=== PATIENT | female | born 1965 | race Caucasian/White ===

== ENCOUNTER 2024-06-22 18:04 | Emergency (ER) | payer MEDICAID, SELFPAY ==
[2024-06-22 18:20] VITALS: BP 127/73; PULSE 88; RESP 17; TEMP 36.8; O2SAT 93
[2024-06-22 18:21] VITALS: BMI 16.4
--- NOTE | 2024-06-22 19:23 | PC.NURSE ---
PT ASKED TO LEAVE AMA, PT STATES SHE DOES NOT WANT TO WAIT FOR ANY FURTHER TESTING. MD RAY AWARE. IV REMOVED. ALL RISKS AND BENEFITS UP TO AND INCLUDED EXPLAINED. PT LEFT AMBULATED WITH A STEADY GAIT, BUT GIVEN A WHEELCHAIR AND HELPED OUT TO THE LOBBY VIA WHEELCHAIR. PT A/OX3 GCS 15. PT ENCOURAGED TO RETURN IF SYMPTOMS WORSEN OR CONTINUE.
--- NOTE | 2024-06-22 19:35 | PD.EDADDENDU ---
Emergency Room Addendum Addendum Narrative: I was told the patient left AMA before I evaluated the patient. Jakob Payne MD
== END 2024-06-22 19:31 | disposition left against medical advice (07) ==
PROVIDERS: Emergency Provider Emergency Medicine
DX: Z53.21 Procedure and treatment not carried out due to patient leaving prior to being seen by health care provider (principal)
CPT/HCPCS: 99281

== ENCOUNTER 2024-12-15 08:04 | Emergency (ER) | payer OTHER, SELFPAY ==
--- NOTE | 2024-12-15 | XR_ITS ---
Examinations: MRI Brain without intravenous contrast. MRA brain without intravenous contrast. MRA carotids without intravenous contrast 3-D vascular reconstructions Date and time of exam: December 15, 2024 1248 hrs. Indications: Onset dizziness weakness syncopal episode today Technique: Multiple axial and sagittal images of the brain have been obtained MRA brain carotid images without contrast obtained, including 3-D postprocessing, vascular maximum intensity projection images Findings: Sellaturcica is not enlarged. The optic chiasm and infundibular stalk are not remarkable. Prepontine and interpeduncular cisterns are not enlarged. No localized enlargement of the medulla or tahira. Fourth ventricle and cerebellar tonsils normal in position. Subacute hemorrhage is not seen. Fourth ventricle is midline. Mass in the cerebellopontine angle region is not evident. 7th and 8th nerve complexes exhibits symmetry. Globes are symmetrical with no retro-orbital mass. Increased white matter signal moderate Diffusion-weighted images demonstrate no acute infarct Mass-effect upon the ventricular system is not identified. MRA carotid images occlusion right internal carotid artery with no filling of the juxtasellar or supracondylar portion of the right internal carotid artery. MRA brain images no filling of the juxtasellar or supracondylar portion of the right internal carotid artery Impression: Negative for acute hemorrhage mass effect or midline shift No acute infarct Recommend CTA carotid arteries follow-up to confirm occlusion which may be chronic right internal carotid artery
[2024-12-15 08:10] VITALS: BP 159/101; PULSE 108; RESP 19; TEMP 36.9; O2SAT 99
[2024-12-15 08:46] VITALS: BMI 14.5
[2024-12-15 09:01] VITALS: BMI 15.6
--- NOTE | 2024-12-15 09:19 | EKG_ITS ---
[facility] Test Date: 2024-12-15 Pat Name: RODGER MONTES Department: Room: - Gender: Female [employer]: : 1965 Requested By: Grisel Daily Order Number: [id number] Reading MD: Grisel Daily Measurements Intervals [place] Rate: 87 P: 64 NH: 112 QRS: 73 QRSD: 91 T: 79 QT: 396 QTc: 477 Interpretive Statements SINUS RHYTHM WITH SHORT NH INTERVAL MODERATE T-WAVE ABNORMALITY, CONSIDER ANTERIOR ISCHEMIA [-0.1+ mV T-WAVE IN V3/V4] No previous ECG available for comparison /store/S0/[id number]
--- NOTE | 2024-12-15 09:19 | XR_ITS ---
Examination: PA lateral chest 2 views Technique: Upright PA lateral chest 2 views Date and time: December 15, 2024 1108 hrs. Indications: Dizziness weakness SOB today. Findings: Normal heart size Prominent hyperexpansion. No pneumonia or pulmonary edema Impression: COPD, prominent hyperexpansion
--- NOTE | 2024-12-15 09:19 | PD.EDRME ---
Rapid Medical Screening Exam [facility] Arrival date/time: 12/15/24 08:04 This is a 59-year-old female that comes into the emergency room with complaints of dizziness and weakness. Patient states she felt very weak yesterday and stayed home and slept all day. Patient reports that today she got up and went to the grocery store and at the grocery store she felt very faint. Patient went to the ground, patient states she did not fall patient states she, assisted herself to the floor and had to lay on the floor in the store. Patient states her dizziness is exacerbated with movement of her head. Patient complains of generalized weakness. Patient denies any fever, nausea, vomiting, diarrhea. Patient has a history of high blood pressure. patient states her right lower jaw has been hurting on and off for the past couple of days. I have greeted and performed a focused initial assessment of this patient. Initial appropriate labs ordered at this time. A comprehensive ED assessment and evaluation of the patient and analysis of all test and completion of medical decision making process will be conducted by additional ED provider. Time Seen by Provider: 12/15/24 08:41 Vital signs: Vital Signs Temperature 98.5 F 12/15/24 08:10 Pulse Rate 108 H 12/15/24 08:10 Respiratory Rate 19 12/15/24 08:10 Blood Pressure 159/101 H 12/15/24 08:10 Pulse Oximetry (%) 99 12/15/24 08:10 Oxygen Delivery Method Room Air 12/15/24 08:10
[2024-12-15] MEDS: MECLIZINE HCL 25 MG TABLET PO (09:42)
[2024-12-15 10:25] LABS: Basophils # (Auto) 0.1 Thou/mm3 (0.0-0.2); Basophils % (Auto) 1 % (0-2.5); Eosinophils % (Auto) 0 % (0-10); Hematocrit 37.5 % (36.0-46.0); Hemoglobin 13.2 g/dL (12.0-16.0); Immature Granulocytes % (Auto) 1 % (0-0); Immature Granulocytes Auto 0.05 Thou/mm3 (0.00-0.00); Lymphocytes # (Auto) 1.9 Thou/mm3 (1.0-4.8); Lymphocytes % (Auto) 19 % (10-50); Mean Corpuscular HGB Conc 35.2 g/dl (31.0-37.0); Mean Corpuscular Volume 100 fL (80-100); Monocytes % (Auto) 10 % (0-12); Neutrophils % (Auto) 69 % (37-80); Nucleated Red Blood Cell % 0 /100 WBC (0); Platelet Count 298 Thou/mm3 (140-440); RDW Standard Deviation 54.3 fL (36.4-46.3); Red Blood Count 3.77 Miln/mm3 (4.00-5.20); White Blood Count 10.1 Thou/mm3 (3.6-11.0)
[2024-12-15 10:44] LABS: B-Type Natriuretic Peptide 63 pg/mL (0-100)
[2024-12-15 10:58] LABS: Alanine Aminotransferase 10 U/L (10-49); Albumin, Serum 4.2 gm/dL (3.4-4.8); Albumin/Globulin Ratio 1.4 (1.2-2.2); Alkaline Phosphatase 125 U/L (46-116); Anion Gap 9 (7-16); Aspartate Amino Transferase 37 U/L (0-34); BUN/Creatinine Ratio 8 Ratio (12-20); Bilirubin,Total 0.8 mg/dL (0.3-1.2); Blood Urea Nitrogen < 5 mg/dL (9-23); Calcium 8.6 mg/dL (8.3-10.6); Calcium (Corrected) 8.6 mg/dL (8.5-10.1); Carbon Dioxide 25.2 mMol/L (20.0-31.0); Chloride 108 mMol/L (98-107); Creatinine (Component) 0.6 mg/dL (0.6-1.3); Estimated Creatinine Clearance 71.4 mL/min (>60); Glucose 98 mg/dL (74-106); Osmolality,Calculated 280 (275-295); Potassium 3.8 mMol/L (3.4-5.1); Sodium 142 mMol/L (136-145); Total Protein 7.2 gm/dL (5.7-8.2); Troponin I 0.027 ng/mL (0.0-0.045); eGFR > 60 See Note
--- NOTE | 2024-12-15 11:44 | PD.EDADULT ---
ED General RME/HPI General Chief complaint: Syncope / Near Syncope Stated complaint: TREMORS / SHAKING DUE TO STRESS / ANXIETY Time Seen by Provider: 12/15/24 08:41 Arrival date/time: 12/15/24 08:04 RME / HPI RME / HPI narrative: 59-year-old female that comes into the emergency room with complaints of dizziness and weakness. Patient states she felt very weak yesterday and stayed home and slept all day. Patient woke up at 5:30 AM this morning, and he felt better however after taking a shower patient developed worsening dizziness and weakness. Patient reports that went to the grocery store and at the grocery store she felt very faint. Patient went to the ground, patient states she did not fall patient states she, assisted herself to the floor and had to lay on the floor in the store. Patient states her dizziness is exacerbated with movement of her head. Patient complains of generalized weakness. Patient denies any fever, nausea, vomiting, diarrhea. Patient has a history of high blood pressure. patient states her right lower jaw has been hurting on and off for the past couple of days. Related Data Home Medications ?Medication ?Instructions ?Recorded ?Confirmed albuterol sulfate 90 mcg/actuation 2 puff inhalation Q6H PRN sob 10/31/20 10/31/20 aerosol inhaler atenolol 25 mg tablet 25 mg PO QDAY 10/31/20 10/31/20 hydrocodone 5 mg-acetaminophen 325 1 tab PO TID PRN Pain 10/31/20 10/31/20 mg tablet promethazine-DM 6.25 mg-15 mg/5 mL 5 ml PO Q6H PRN Cough 10/31/20 10/31/20 oral syrup tiotropium bromide 1.25 2 puff inhalation QDAY 10/31/20 10/31/20 mcg/actuation mist for inhalation (Spiriva Respimat) Previous Rx's ?Medication ?Instructions ?Recorded guaifenesin 600 mg tablet, 600 mg PO BID #14 tabs 11/01/20 extended release 12 hr (Mucinex) levofloxacin 500 mg tablet 500 mg PO QDAY #7 tabs 11/01/20 prednisone 20 mg tablet 40 mg (2 x 20 mg) PO QDAY #10 tabs 11/01/20 meclizine 25 mg tablet 25 mg PO BID PRN dizziness #30 tabs 12/15/24 Allergies Allergy/AdvReac Type Severity Reaction Status Date / Time No Known Allergies Allergy Verified 12/15/24 08:16 Review of Systems Review of Systems Narrative Review of Systems: Review of system reviewed and within normal limits except mentioned in HPI ED Exam Narrative Physical exam: VITAL SIGNS: Reviewed. GENERAL APPEARANCE: Alert and interactive, follows commands, no acute distress, HEAD AND FACE: Non-traumatic. ENT: PERRL, pink conjunctivitis, eyelid no trauma, Mucous membrane moist. No nystagmus noted NECK: Supple, nontender, no nuchal rigidity. CHEST: No tenderness, no crepitus, no paradoxical movement, no retractions. LUNGS: Clear, well ventilated, symmetric, no rales, no wheezing, no ronchi, no stridor, good breath sounds bilaterally. HEART: Regular rate, regular rhythm, no murmur, no gallops. ABDOMEN: Soft, positive bowel sounds, nondistended, no guarding, nontender, no rebound, no masses, RECTAL: Deferred. GENITAL: Deferred. NEUROLOGICAL: Gross motor function intact sensory function intact, positive Romberg's test, appropriate for age. MUSCULOSKELETAL: low back nontender, full range of motion. EXTREMITIES: Nontender, full range of motion. SKIN: Color pink, dry, no rash, no lacerations, no abrasions, no contusions. LYMPHATICS: Deferred. Course Quality Measures none Orders Category Date Time Status EKG (ED ONLY) *Do not use* NOW Care 12/15/24 09:19 Completed MRI Screening NOW Care 12/15/24 11:40 Active EKG (ED Only) Stat Exams 12/15/24 09:19 Draft MR stroke protocol Stat Exams 12/15/24 Completed XR chest 2V Stat Exams 12/15/24 09:19 Completed BNP [B-Type Natriuretic Peptide] Stat Lab 12/15/24 10:18 Completed CBC Stat Lab 12/15/24 10:18 Completed Comprehensive Metabolic Panel Stat Lab 12/15/24 10:18 Completed Troponin I Stat Lab 12/15/24 10:18 Completed UA, C/S IF [Urinalysis, C/S if Indicated] Stat Lab 12/15/24 14:24 Completed Meclizine HCl [Antivert] Med 12/15/24 09:20 Discontinued 25 mg PO X1 ONE Ringers Lactated 1000 ml [Lactated Ringers] 1,000 ml Med 12/15/24 11:38 Discontinued IV 999 mls/hr Vital Signs Vital signs: Vital Signs Temperature 98.5 F 12/15/24 08:10 Pulse Rate 108 H 12/15/24 08:10 Respiratory Rate 19 12/15/24 08:10 Blood Pressure 159/101 H 12/15/24 08:10 Pulse Oximetry (%) 99 12/15/24 08:10 Oxygen Delivery Method Room Air 12/15/24 08:10 Discharge Plan Plan Patient Disposition: HOME (Self Care) Discharge Disposition comment: Stable Prescriptions/Referrals Prescriptions/Med Rec: New meclizine 25 mg tablet 25 mg PO BID PRN (Reason: dizziness) Qty: 30 0RF No Action promethazine-DM 6.25-15 mg/5 mL Syrup 5 ml PO Q6H PRN (Reason: Cough) hydrocodone-acetaminophen 5-325 mg Tablet 1 tab PO TID PRN (Reason: Pain) atenolol 25 mg Tablet 25 mg PO QDAY albuterol sulfate 90 mcg/actuation Hfa Aerosol Inhaler 2 puff INHALATION Q6H PRN (Reason: sob) Spiriva Respimat 1.25 mcg/actuation Mist 2 puff INHALATION QDAY guaifenesin [Mucinex] 600 mg Tablet Extended Release 12hr 600 mg PO BID Qty: 14 0RF levofloxacin 500 mg tablet 500 mg PO QDAY Qty: 7 0RF prednisone 20 mg tablet 40 mg PO QDAY Qty: 10 0RF Referrals: Simon Calderon MD [Primary Care Provider] - In 1 week Problem List Clinical Impression: Dizziness Patient/Caregiver Discharge Instructions Discharge Activity: activity as tolerated Education Materials: Dizziness Balance Probs Fainting Additional Instructions: Thank you for the opportunity for serving you today. You are stable for discharged . You are advised to: Follow-up with your PCP in 1 to 2 days Return to ED for worsening of symptoms Increase oral fluids Take medication as prescribed Print Language: Libyan Stand Alone Forms: Radha Award Info., Patient Portal Info Letter MDM Narrative MDM hospital course (for use when minimal MDM required): 59-year-old female that comes into the emergency room with complaints of dizziness and weakness. Patient states she felt very weak yesterday and stayed home and slept all day. Patient woke up at 5:30 AM this morning, and he felt better however after taking a shower patient developed worsening dizziness and weakness. Patient reports that went to the grocery store and at the grocery store she felt very faint. Patient went to the ground, patient states she did not fall patient states she, assisted herself to the floor and had to lay on the floor in the store. Patient states her dizziness is exacerbated with movement of her head. Patient complains of generalized weakness. Patient denies any fever, nausea, vomiting, diarrhea. Patient has a history of high blood pressure. patient states her right lower jaw has been hurting on and off for the past couple of days. EKG as interpreted by me showed normal sinus rhythm, ventricular rate of 87 bpm, no ST segment elevation or depression noted. Patient's workup today including urinalysis all came back unremarkable. Patient still dizzy after giving meclizine, I added MRI and IV fluids. MRI came back unremarkable. Results discussed with the patient. After IV fluids patient was noted to be ambulatory with no more dizziness. Patient appears nontoxic and hemodynamically stable. Patient discharged home and instructed to follow-up with primary care provider in 24 to 48 hours. Instructed to return to the emergency department immediately if worsening of symptoms Medication Administration(s) Medication Administration History Discontinued Medications Lactated Ringer's (Lactated Ringers) 1,000 mls @ 999 mls/hr IV .Q1H1M ONE Stop: 12/15/24 12:38 Last Infusion: 12/15/24 14:34 Dose: Infused Documented By: Admin: 12/15/24 12:08 Dose: 999 mls/hr Documented By: JANA Meclizine HCl (Meclizine Hcl 25 Mg Tablet) 25 mg PO X1 ONE Stop: 12/15/24 09:21 Last Admin: 12/15/24 09:42 Dose: 25 mg Documented By: JYOTSNA Diagnosis Differential Diagnosis ED Complaint MDM: Dizziness, headache, intracranial bleed, CVA Diagnoses ruled out and/or further discussions: Dizziness
[2024-12-15 11:59] VITALS: BP 141/80; PULSE 79; RESP 14; TEMP 36.6; O2SAT 98
[2024-12-15] MEDS: RINGERS LACTATED 1000 ML 1,000 ML 999 ML IV (12:08)
--- NOTE | 2024-12-15 12:19 | PC.NURSE ---
PT CAME INTO ED WITH SPOUSE FOR NEAR FAINT EPISODE. PT STATES SHE WAS FEELING FATIGUE YESTERDAY. PT STATES SHE DID NOT LOSS CONSCIOUSNESSES AND DENIES HITTING HEAD
[2024-12-15 14:51] LABS: Collection Type, Urine Clean Catch
[2024-12-15 15:30] VITALS: BP 150/87; PULSE 78; RESP 18; TEMP 36.7; O2SAT 96
[2024-12-15 15:30] LABS: Bacteria,Urine Rare; Bilirubin,Urine Negative (Negative); Blood,Urine Negative (Negative); Color,Urine Lt-Yellow (Lt Yel-Yel); Culture Indicated,Urine Not Indicated; Glucose, Urine Negative (Negative); Ketones,Urine Negative (Negative); Leukocyte Esterase,Urine Positive (Negative); Nitrite,Urine Negative (Negative); PH,Urine 8.5 (5.0-7.0); Protein,Urine Trace (Neg - Trace); RBC,Urine 3 /hpf (0-3); Specific Gravity,Urine 1.016 (1.001-1.035); Squamous Epithelial Cell,Urine 6 /hpf (0-5); Transitional Epi Cells,Urine < 1 /hpf (0-5); Urobilinogen,Urine Negative mg/dL (0.0-1.0); WBC,Urine 6 /hpf (0-5)
[2024-12-15 15:37] LABS: Clarity,Urine Hazy (Clear/Hazy)
== END 2024-12-15 15:58 | disposition home or self-care (01) ==
PROVIDERS: Nurse Practitioner Family; Emergency Provider Emergency Medicine; PCP Family Medicine
DX: R42 Dizziness and giddiness (principal); R53.1 Weakness
CPT/HCPCS: 36415; 70544; 71046; 80053; 81001; 83880; 84484; 85025; 93005; 96360; 96361; 99284; J7120; A9270

== ENCOUNTER 2025-01-27 09:08 | Emergency (ER) | payer OTHER, SELFPAY ==
[2025-01-27 09:51] VITALS: BP 131/81; PULSE 100; RESP 18; TEMP 37; O2SAT 98; BMI 15.0
--- NOTE | 2025-01-27 10:02 | EKG_ITS ---
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
--- NOTE | 2025-01-27 10:03 | PD.EDRME ---
Rapid Medical Screening Exam RME Arrival date/time: 01/27/25 09:08 This is a case of 59-year-old female who came into the emergency room due to dizziness generalized weakness nausea vomiting for 4 days patient was here few weeks ago where MRI was done and it was normal persistence of the symptoms this patient decided to start consult here in the emergency room Chief Complaint: Dizziness Time Seen by Provider: 01/27/25 09:40 Vital signs: Vital Signs Temperature 98.6 F 01/27/25 09:51 Pulse Rate 100 01/27/25 09:51 Respiratory Rate 18 01/27/25 09:51 Blood Pressure 131/81 H 01/27/25 09:51 Pulse Oximetry (%) 98 01/27/25 09:51 Oxygen Delivery Method Room Air 01/27/25 09:51
[2025-01-27 10:32] LABS: Basophils # (Auto) 0.1 Thou/mm3 (0.0-0.2); Basophils % (Auto) 1 % (0-2.5); Eosinophils % (Auto) 0 % (0-10); Hematocrit 39.2 % (36.0-46.0); Hemoglobin 13.8 g/dL (12.0-16.0); Immature Granulocytes % (Auto) 1 % (0-0); Immature Granulocytes Auto 0.05 Thou/mm3 (0.00-0.00); Lymphocytes # (Auto) 2.4 Thou/mm3 (1.0-4.8); Lymphocytes % (Auto) 23 % (10-50); Mean Corpuscular HGB Conc 35.2 g/dl (31.0-37.0); Mean Corpuscular Hemoglobin 34.8 pg (25.0-35.0); Mean Corpuscular Volume 99 fL (80-100); Monocytes # (Auto) 0.8 Thou/mm3 (0.0-0.8); Monocytes % (Auto) 8 % (0-12); Neutrophils # (Auto) 7.1 Thou/mm3 (1.8-7.7); Neutrophils % (Auto) 68 % (37-80); Nucleated Red Blood Cell % 0 /100 WBC (0); Platelet Count 272 Thou/mm3 (140-440); RDW Standard Deviation 48.8 fL (36.4-46.3); Red Blood Count 3.96 Miln/mm3 (4.00-5.20); White Blood Count 10.4 Thou/mm3 (3.6-11.0)
--- NOTE | 2025-01-27 10:47 | PC.NURSE ---
BIBA due to dizziness, n/v, and unable to walk with out the sensation of wanting to fall. Dr. Brown at bedside assessing patient and updating on POC.
--- NOTE | 2025-01-27 10:53 | PD.EDDIZZY ---
ED Dizzyness RME/HPI General Chief Complaint: Dizziness Stated Complaint: DIZZINESS Time Seen by Provider: 01/27/25 09:40 Arrival date/time: 01/27/25 09:08 Limitations: no limitations RME / HPI RME / HPI Narrative: 01/27/25 09:08 This is a case of 59-year-old female who came into the emergency room due to dizziness generalized weakness nausea vomiting for 4 days patient was here few weeks ago where MRI was done and it was normal persistence of the symptoms this patient decided to start consult here in the emergency room DR. BROWN MAIN ED EVALUATION: 59 year old female with history of hypertension presents to the ED BIBA from home for evaluation of dizziness beginning this morning. Described dizziness as a room-spinning sensation that is accompanied by feeling unsteady on feet. Additionally reports nausea, vomiting, and feeling globally weak. Dizziness aggravated with head movements and minimally improved with lying still. Patient mentioned she was evaluated here two weeks ago for similar dizziness and diagnosed with Vertigo. Discharged home with Meclizine which she states she attempted taking today but shortly after vomited. Denies ear pain, ringing, or buzzing. No other associated symptoms reported. Related Data Home Medications ?Medication ?Instructions ?Recorded ?Confirmed albuterol sulfate 90 mcg/actuation 2 puff inhalation Q6H PRN sob 10/31/20 10/31/20 aerosol inhaler atenolol 25 mg tablet 25 mg PO QDAY 10/31/20 10/31/20 hydrocodone 5 mg-acetaminophen 325 1 tab PO TID PRN Pain 10/31/20 10/31/20 mg tablet promethazine-DM 6.25 mg-15 mg/5 mL 5 ml PO Q6H PRN Cough 10/31/20 10/31/20 oral syrup tiotropium bromide 1.25 2 puff inhalation QDAY 10/31/20 10/31/20 mcg/actuation mist for inhalation (Spiriva Respimat) Previous Rx's ?Medication ?Instructions ?Recorded guaifenesin 600 mg tablet, 600 mg PO BID #14 tabs 11/01/20 extended release 12 hr (Mucinex) levofloxacin 500 mg tablet 500 mg PO QDAY #7 tabs 11/01/20 prednisone 20 mg tablet 40 mg (2 x 20 mg) PO QDAY #10 tabs 11/01/20 meclizine 25 mg tablet 25 mg PO BID PRN dizziness #30 tabs 12/15/24 dexamethasone 4 mg tablet 4 mg PO QDAY #5 tabs 01/27/25 hydrochlorothiazide 12.5 mg tablet 12.5 mg PO QDAY #10 tabs 01/27/25 meclizine 25 mg tablet 25 mg PO TID PRN dizziness #30 tabs 01/27/25 Allergies Allergy/AdvReac Type Severity Reaction Status Date / Time No Known Allergies Allergy Verified 12/15/24 08:16 Review of Systems Review of Systems Systems Reviewed: All systems reviewed, normal except as documented Past Medical History Past Medical History CARDIAC: Positive Cardiac Disorders and Hypertension RESPIRATORY: Positive Asthma and Bronchitis Family History FAMILY HISTORY: Positive Family Cardiac Disorders and Family Cancer Surgical History SURGICAL: Positive Section Social History SMOKING STATUS: Current every day smoker SUBSTANCE USE: does not use ED Exam General Limitations: Present no limitations General appearance: Present alert and in no apparent distress Head Head exam: Present atraumatic and normocephalic Eye Eye exam: Present PERRL, EOMI and nystagmus (nystagmus to the left side, unidirectional, skew test negative) ENT ENT exam: Present normal exam, normal oropharynx and mucous membranes moist Neck Neck exam: Present normal inspection, full ROM and trachea midline Chest Chest inspection: Present normal inspection and symmetric chest wall rise Respiratory Respiratory exam: Present normal lung sounds bilaterally Cardiovascular Cardiovascular exam: Present regular rate, normal rhythm and normal heart sounds Abdominal Exam Abdominal exam: Present soft and normal bowel sounds Extremities Exam Extremities exam: Present normal inspection and full ROM Back Exam Back exam: Present normal inspection and full ROM Neurological Exam Neurological exam: Present alert, oriented X3, CN II-XII intact and other (Nystagmus looking to the left, skew test negative, head tilt test positive cerebellar signs negative ) Psychiatric Psychiatric exam: Present normal affect and normal mood Skin Skin exam: Present warm, dry, intact and normal color Course Quality Measures none Orders Category Date Time Status EKG (ED ONLY) *Do not use* NOW Care 01/27/25 10:02 Completed EKG (ED Only) Stat Exams 01/27/25 10:02 Draft CBC Stat Lab 01/27/25 10:18 Completed CMP [Comprehensive Metabolic Panel] Stat Lab 01/27/25 10:18 Completed Troponin I Stat Lab 01/27/25 10:18 Completed Urinalysis Stat Lab 01/27/25 10:02 Ordered dexAMETHasone TAB [dexAMETHasone Tab] Med 01/27/25 10:41 Discontinued 6 mg PO X1 ONE hydroCHLOROthiazide Med 01/27/25 10:40 Discontinued 12.5 mg PO X1 ONE Vital Signs Vital signs: Vital Signs Temperature 98.6 F 01/27/25 09:51 Pulse Rate 100 01/27/25 09:51 Respiratory Rate 18 01/27/25 09:51 Blood Pressure 131/81 H 01/27/25 09:51 Pulse Oximetry (%) 98 01/27/25 09:51 Oxygen Delivery Method Room Air 01/27/25 09:51 Pulse ox is 98% on room air which is adequate. Dizziness MDM Narrative MDM Narrative:: Altagracia Velasco am scribing for and in the presence of Dr. Brown. Assessment: Likely recurrence of peripheral vertigo, most probably due to altered endolymph consistency. No signs of labyrinthitis or central causes. MRI performed two weeks ago was unremarkable. Plan: Sheri Maneuver with partial success. Instructed the patient on how to perform the maneuver at home. Advised that additional episodes are possible, but they often resolve with repositioning maneuvers. Will start the patient on steroids and hydrocortisone. Advised the patient to follow up with her PCP. Patient data External records reviewed:: [facility] previous records (I reviewed ED Visit on 12/15/2024 for vertigo ) and EMS form Clinical information provided by:: patient and EMS Social determinants that could affect healthcare access:: none Patient has the following chronic illnesses:: Hypertension, hx of vertigo How is presenting disease/condition affected by chronic disease/condition?: exacerbated by Evaluation data The following diagnostics were reviewed and interpreted by me:: lab results and EKG tracing(s) (01/27/2025 @ 10:13 AM. NSR, rate 89, no axis deviation, no ischemia, no LVH. ) Lab and/or radiology exams considered but not ordered:: None Interpretation Summary: As noted above Medications / Prescriptions Medications or Prescriptions considered but not ordered:: None Medication administrations:: Medication Administration History Discontinued Medications Dexamethasone (Dexamethasone 6 Mg Tablet) 6 mg PO X1 ONE; Protocol Stop: 01/27/25 10:42 Last Admin: 01/27/25 11:42 Dose: 6 mg Documented By: ER Hydrochlorothiazide (Hydrochlorothiazide 12.5 Mg Capsule) 12.5 mg PO X1 ONE Stop: 01/27/25 10:41 Last Admin: 01/27/25 11:41 Dose: 12.5 mg Documented By: ER See above Consultations Consultation(s) initiated? (list below): No Diagnosis Dizziness Differential Diagnosis: benign paroxysmal positional vertigo and orthostatic hypotension Most likely diagnosis given after review of the tests above:: BPV Admission Indicated Admission indicated?: not indicated Admission Request Was there a request for admission?: No Disposition Plan Disposition Plan: Discharge Discharge Attestation Discharge Attestation: The patient and all family members were given an opportunity to ask questions and understood the discharge instructions. Discharge instructions specifically effects, indications for sooner follow up or return to the emergency department, and the expected course of current diagnosis. Patient condition: Stable Discharge Plan Plan Patient Disposition: HOME (Self Care) Prescriptions/Referrals Prescriptions/Med Rec: New meclizine 25 mg tablet 25 mg PO TID PRN (Reason: dizziness) Qty: 30 0RF hydrochlorothiazide 12.5 mg tablet 12.5 mg PO QDAY Qty: 10 0RF dexamethasone 4 mg tablet 4 mg PO QDAY Qty: 5 0RF No Action promethazine-DM 6.25-15 mg/5 mL Syrup 5 ml PO Q6H PRN (Reason: Cough) hydrocodone-acetaminophen 5-325 mg Tablet 1 tab PO TID PRN (Reason: Pain) atenolol 25 mg Tablet 25 mg PO QDAY albuterol sulfate 90 mcg/actuation Hfa Aerosol Inhaler 2 puff INHALATION Q6H PRN (Reason: sob) Spiriva Respimat 1.25 mcg/actuation Mist 2 puff INHALATION QDAY guaifenesin [Mucinex] 600 mg Tablet Extended Release 12hr 600 mg PO BID Qty: 14 0RF levofloxacin 500 mg tablet 500 mg PO QDAY Qty: 7 0RF prednisone 20 mg tablet 40 mg PO QDAY Qty: 10 0RF meclizine 25 mg tablet 25 mg PO BID PRN (Reason: dizziness) Qty: 30 0RF Referrals: No Primary/Family,Physician [Referring Provider] - In 1 week Problem List Clinical Impression: BPV (benign positional vertigo) Patient/Caregiver Discharge Instructions Education Materials: ED BPV Vertigo Additional Instructions: He can perform Sheri's maneuver at home Print Language: Sierra Leonean Stand Alone Forms: Radha Hinton Info., Patient Portal Info Letter
[2025-01-27 11:01] LABS: Alanine Aminotransferase 13 U/L (10-49); Albumin, Serum 4.3 gm/dL (3.4-4.8); Albumin/Globulin Ratio 1.4 (1.2-2.2); Alkaline Phosphatase 132 U/L (46-116); Anion Gap 12 (7-16); Aspartate Amino Transferase 42 U/L (0-34); BUN/Creatinine Ratio 8 Ratio (12-20); Bilirubin,Total 0.7 mg/dL (0.3-1.2); Blood Urea Nitrogen < 5 mg/dL (9-23); Calcium 9.3 mg/dL (8.3-10.6); Calcium (Corrected) 9.3 mg/dL (8.5-10.1); Carbon Dioxide 20.2 mMol/L (20.0-31.0); Chloride 110 mMol/L (98-107); Creatinine (Component) 0.6 mg/dL (0.6-1.3); Estimated Creatinine Clearance 68.5 mL/min (>60); Globulin 3.1 gm/dL (2.3-3.5); Glucose 79 mg/dL (74-106); Osmolality,Calculated 279 (275-295); Potassium 4.5 mMol/L (3.4-5.1); Sodium 142 mMol/L (136-145); Total Protein 7.4 gm/dL (5.7-8.2); Troponin I < 0.002 ng/mL (0.0-0.045); eGFR > 60 See Note
[2025-01-27 11:41] VITALS: BP 175/101; PULSE 103
[2025-01-27] MEDS: hydroCHLOROthiazide 12.5 MG CAPSULE PO (11:41)
[2025-01-27] MEDS: dexAMETHasone 6 MG TABLET PO (11:42)
[2025-01-27 12:28] VITALS: BP 176/95; PULSE 105; RESP 18; O2SAT 98
[2025-01-27 13:14] VITALS: BP 155/97; PULSE 108; RESP 18; O2SAT 99
== END 2025-01-27 13:28 | disposition home or self-care (01) ==
PROVIDERS: Nurse Practitioner Family; Emergency Provider Emergency Medicine; PCP Family Medicine
DX: H81.10 Benign paroxysmal vertigo, unspecified ear (principal); I10 Essential (primary) hypertension
CPT/HCPCS: 36415; 80053; 81001; 84484; 85025; 93005; 99283; J8540; A9270